=== PATIENT | female | born 1945 | race Caucasian/White ===

== ENCOUNTER 2024-03-01 10:31 | Emergency (ER) | payer MEDICARE, SELFPAY ==
[2024-03-01 10:31] VITALS: BP 173/72; PULSE 61; RESP 14; TEMP 37.1; O2SAT 97; BMI 28.3
[2024-03-01 10:47] LABS: Bacteria 0 SEEN /hpf (None Seen); Mucous, Urine 0 SEEN /hpf (<or=2+); Squamous Epithelial Cells - UA 0 SEEN /hpf (5-10)
[2024-03-01 10:52] LABS: Color, Urine Straw (Yellow); Glucose, Dipstick Normal (Normal); Ketone-Dipstick Negative (Negative); Leukocyte Esterase-Dipstick 100 /ul (Negative); Nitrite-Dipstick Negative (Negative); Occult Blood-Urine 250 /ul (Negative); Protein-Dipstick 100 mg/dl (Negative); Specific Gravity, Urine 1.015 (1.002-1.030); Urine Bilirubin Dipstick Negative (Negative); Urine Clarity Sl. Cloudy (Clear); Urine Urobilinogen Normal (Normal); Urine pH 6.5 (5.0 - 8.0)
--- NOTE | 2024-03-01 11:09 | EX.ED.DYSGE1 ---
HPI History of Present Illness Chief Complaint: Complaint Informant: patient Narrative Narrative: Patient is an 79-year-old female presenting from home for 1 day of urinary frequency, mild dysuria and suprapubic discomfort. She states she woke up with symptoms at 4 AM. She states that she has been using the restroom frequently and has some mild discomfort with it. She denies any dribbling or hesitancy. She has not feels like last time she had a urinary tract infection which was about 2 years ago. Denies any nausea, vomiting, fever, chills or back pain. No other complaints or concerns reported at this time. States she is normally very active. Comments that since it is [place] everything is close that she came to the ER. [facility] Medical History Hyperlipemia Hypertension Home Medications ?Medication ?Instructions ?Recorded ?Last Taken ?Type amlodipine 5 mg tablet 5 mg PO DAILY 03/01/24 Unknown History atenolol 100 mg tablet 100 mg PO DAILY 03/01/24 Unknown History cephalexin 500 mg capsule 500 mg PO Q12 #10 CAPSULES 03/01/24 Unknown Rx furosemide 40 mg tablet 40 mg PO DAILY 03/01/24 Unknown History lisinopril 40 mg tablet 40 mg PO DAILY 03/01/24 Unknown History phenazopyridine 200 mg tablet 200 mg PO TID PRN pain with 03/01/24 Unknown Rx (Pyridium) urination #6 tabs simvastatin 20 mg tablet 20 mg PO QHS 03/01/24 Unknown History Allergy/AdvReac Type Severity Reaction Status Date / Time No Known Allergies Allergy Verified 03/01/24 10:45 Family History no significant family his Social History household members: spouse Smoking Status: Never smoker ROS ROS ED Constitutional Constitutional ED: Denies chills or fever(s) Gastrointestinal Gastrointestinal: Reports abdominal pain; Denies nausea or vomiting Genitourinary Genitourinary ED: Reports dysuria and urinary frequency Musculoskeletal Musculoskeletal: Denies arthralgias, back pain or myalgias Neurologic Neurologic: Denies weakness EXAM Physical Exam Const Vital Signs: 03/01/24 10:31 Temperature 98.7 F Temperature Source Temporal Pulse Rate 61 Respiratory Rate 14 Blood Pressure 173/72 H Blood Pressure Mean 105 Pulse Ox 97 Oxygen Delivery Method Room Air Positive well nourished and well developed General Appearance ED: well developed and NAD HEENT Reports moist mucous membranes Chest Wall inspection of chest normal Resp normal respiratory effort and clear to auscultation bilaterally Cardio regular rate and regular rhythm GI normal to inspection, nondistended, normoactive bowel sounds and non-tender Back/Spine no CVA tenderness Lumbar Spine / Lower Back: Negative for lumbar spinal tenderness Neuro oriented x3 Sensorium / Orientation: alert Motor Exam: Negative for general weakness Psych mental status grossly normal Skin no rashes or lesions noted MDM MDM MDM Narrative Medical decision making narrative: Patient valuate for 1 day of urinary tract infection symptoms including dysuria, suprapubic discomfort and frequency. Patient is quite well-appearing. She is afebrile. Will send urinalysis and urine culture. Anticipated will be consistent with UTI based on her HPI and will start patient on Keflex and Pyridium. Patient given return precautions. Given first dose of medications the ER as it is a holiday. Since patient is quite well-appearing do not think patient requires lab work or advanced imaging at this time. Urinalysis shows 100 leukocyte esterase, 25-50 red blood cells and 10-25 white blood cells. No bacteria seen. Discussed with patient that her symptoms are consistent with UTI but is possible she could have a kidney stone or other pathology. Patient a does not feel that she has kidney stone (is not really acting like 1). Spasm this could be early hemorrhagic cystitis. She would like to defer further testing (CT of the abdomen pelvis) and treat with Pyridium and Keflex at this time. She is encouraged to return to the emergency room should she have a progression of her symptoms or not improved. Given return precautions. Discharged home in stable condition. Bladder scan shows approximately 50 cc of urine. Low suspicion for acute urinary retention causing her frequency. Lab Data Attestation: I reviewed the patient's lab results. Labs: Laboratory Results - last 24 hr 03/01/24 10:43 Urine Color Straw Urine Clarity Sl. Cloudy Urine pH 6.5 Ur Specific [place] 1.015 Urine Protein 100 H Urine Glucose (UA) Normal Urine Ketones Negative Urine Occult Blood 250 H Urine Nitrite Negative Urine Bilirubin Negative Urine Urobilinogen Normal Ur Leukocyte Esterase 100 H Urine RBC 25-50 SEEN Urine WBC 10-25 SEEN Ur Squamous Epith Cells 0 SEEN Urine Bacteria 0 SEEN Urine Mucus 0 SEEN Discharge Plan Triage Chief Complaint: Complaint ED Provider: Delfina Barrera Dx/Rx/DC Orders Clinical Impression: Hematuria, Frequency of urination, Acute UTI Instructions: ED Hematuria, ED Cystitis Female Adult Prescriptions: New cephalexin 500 mg capsule 500 mg PO Q12 Qty: 10 0RF phenazopyridine [Pyridium] 200 mg tablet 200 mg PO TID PRN (Reason: pain with urination) Qty: 6 0RF No Action furosemide 40 mg tablet 40 mg PO DAILY atenolol 100 mg tablet 100 mg PO DAILY amlodipine 5 mg tablet 5 mg PO DAILY simvastatin 20 mg tablet 20 mg PO QHS lisinopril 40 mg tablet 40 mg PO DAILY Primary Care Provider: Care Physician,No Primary Referrals: Fabi Go MD [Med Staff - Active Staff] - As Needed Care Physician,No Primary [Primary Care Provider] - Activity Restrictions/Additional Instructions: Your urine test today showed blood and white blood cells but no obvious bacteria. This could be an early urinary tract infection causing this. If you develop worsening pain or not improving please return to the emergency room for further evaluation. Please follow-up with a primary care doctor and you have also been given referral to urology if you continue to have blood in your urine or if you develop frequent urinary tract infections. Print Language: Malay Disposition Disposition: Home, Self Care
[2024-03-01 11:18] LABS: Red Blood Cells-Urine 25-50 SEEN /hpf (0-5); White Blood Cells 10-25 SEEN /hpf (0-5)
[2024-03-01] MEDS: Cephalexin 250 MG Capsule 500 MG PO (11:43)
[2024-03-01] MEDS: Phenazopyridine 95 MG Tablet PO (11:43)
== END 2024-03-01 11:54 | disposition home or self-care (01) ==
PROVIDERS: Emergency Provider Emergency Medicine; Visit Provider Emergency Medicine
DX: N39.0 Urinary tract infection, site not specified (principal); I10 Essential (primary) hypertension; R31.9 Hematuria, unspecified; R35.0 Frequency of micturition; E78.5 Hyperlipidemia, unspecified; Z79.899 Other long term (current) drug therapy
CPT/HCPCS: 81001; 87086; 87088; 87186; 99283

== ENCOUNTER → 2024-03-17 | Outpatient (CLI) | payer MEDICARE, SELFPAY ==
[2024-03-17 15:24] LABS: Absolute Neutrophil Count 4.1 X10^3/uL (2.0-7.7); Basophil# 0.05 X10^3/uL; Basophil% 0.7 % (0-1); Eosinophil# 0.18 X10^3/uL; Eosinophils% 2.4 % (0-5); Hematocrit 42.5 % (37-47); Hemoglobin 14.1 g/dL (12.0-15.0); Mean Corp Hgb Conc 33.2 g/dL (32-36); Mean Corpuscular Hgb 30.5 pg (27.0-32.0); Mean Corpuscular Volume 91.8 fL (81-99); Mean Platelet Vol. 11.2 fl (6.2-12.0); Monocyte# 0.74 X10^3/uL; Monocyte% 9.9 % (0-10); NRBC Flagged by Analyzer 0 % (0-5); Neutrophil # 4.12 X10^3/uL (2.7-7.7); Neutrophil % 54.9 % (47-70); Platelet Count 176 K/mm3 (150-450); RBC Distribution Width CV 12.7 % (11.6-14.6); RBC Distribution Width SD 42.7 fl (35.1-43.9); Red Blood Count 4.63 M/mm3 (4.2-5.4); White Blood Count 7.5 K/mm3 (4.4-11.0)
[2024-03-17 15:32] LABS: Vitamin D,25 Hydroxy 32.5 ng/mL
[2024-03-17 15:45] LABS: ALB/GLOB Ratio 1.1 RATIO (0.9-2.4); AST(SGOT) 18 U/L (15-37); Alanine Aminotransfer ALT/SGPT 21 U/L (13-56); Albumin, Serum 4.2 g/dL (3.2-5.0); Alkaline Phosphatase 58 U/L (45-117); Anion Gap 2 (5-15); BUN 13 mg/dL (7-18); BUN/Creat Ratio 15.8 RATIO (10-20); Calcium,Total 9.3 mg/dL (8.5-10.1); Chloride 104 mmol/L (98-107); Cholesterol 147 mg/dL (200); Creatinine, Serum 0.82 mg/dL (0.55-1.02); EST Glomerular Filtration Rate 71 mL/min (>60); Est Glom Filt Rate - Afr Amer 86 mL/min (>60); Globulin 3.8 g/dL (2.2-4.2); Glucose 99 mg/dL (74-106); High Density Lipoprotein 60 mg/dL; Potassium 3.5 mmol/L (3.5-5.1); Sodium Level 138 mmol/L (136-145); Triglycerides 110 mg/dL; Very Low Density Lipoprotein 22 mg/dL (5-40)
== END | disposition home or self-care (01) ==
LOC: MTLAB 13:12
PROVIDERS: PCP Family Medicine; Referring Provider Family Medicine; Visit Provider Family Medicine
DX: E78.5 Hyperlipidemia, unspecified (principal); I10 Essential (primary) hypertension; R53.83 Other fatigue

== ENCOUNTER 2024-06-11 07:56 | Emergency (ER) | payer MEDICARE, SELFPAY ==
[2024-06-11 07:56] VITALS: BP 179/82; PULSE 59; RESP 16; TEMP 36.6; O2SAT 96; BMI 28.8
--- NOTE | 2024-06-11 08:05 | EX.ED.DYSGE1 ---
HPI History of Present Illness Chief Complaint: Complaint Informant: patient Onset/Context/Timing Onset: Days (3) Context: Gradual Onset Timing: Continuous Quality: Burning Location: Suprapubic area Worsened by: Urination Relieved by: Cranberry juice Narrative Narrative: Patient presents with dysuria that has been getting worse over the past 3 days. Patient describes it as burning sensation. Patient states it is worse with urination. Patient states she has been drinking some cranberry juice which has been helping. Patient denies any fevers or chills. Patient denies any nausea or vomiting. Patient denies any neck or back pain. Patient denies any hematuria. [facility] Medical History Hyperlipemia Hypertension Home Medications ?Medication ?Instructions ?Recorded ?Last Taken ?Type amlodipine 5 mg tablet 5 mg PO DAILY 03/01/24 Unknown History atenolol 100 mg tablet 100 mg PO DAILY 03/01/24 Unknown History furosemide 40 mg tablet 40 mg PO DAILY 03/01/24 Unknown History lisinopril 40 mg tablet 40 mg PO DAILY 03/01/24 Unknown History phenazopyridine 200 mg tablet 200 mg PO TID PRN pain with 03/01/24 Unknown Rx (Pyridium) urination #6 tabs simvastatin 20 mg tablet 20 mg PO QHS 03/01/24 Unknown History cephalexin 500 mg capsule 500 mg PO Q12 #10 CAPSULES 06/11/24 Unknown Rx Allergy/AdvReac Type Severity Reaction Status Date / Time No Known Allergies Allergy Verified 03/01/24 10:45 Family History no significant family his Surgical History no surgical history no surgical history Social History household members: spouse Smoking Status: Never smoker ROS ROS ED Constitutional Constitutional ED: Denies chills or fever(s) Eyes Eyes: Denies blurry vision or change in vision ENT ENT ED: Denies rhinorrhea or sore throat Cardiovascular Cardiovascular: Denies chest pain or palpitations Respiratory/Chest Respiratory/Chest: Denies cough or dyspnea Gastrointestinal Gastrointestinal: Denies nausea or vomiting Genitourinary Genitourinary ED: Reports dysuria; Denies hematuria Musculoskeletal Musculoskeletal: Denies back pain or neck pain Integumentary Denies abscess or rash Neurologic Neurologic: Denies headache(s) or weakness Allergic/Immunologic Allergic/Immunologic ED: Denies mouth swelling or urticaria EXAM Physical Exam Const Vital Signs: 06/11/24 07:56 Temperature 97.9 F Temperature Source Temporal Pulse Rate 59 L Respiratory Rate 16 Blood Pressure 179/82 H Blood Pressure Mean 114 Pulse Ox 96 Oxygen Delivery Method Room Air Positive well nourished and well developed General Appearance ED: well developed and NAD HEENT Reports moist mucous membranes Neck supple and no JVD Resp normal respiratory effort and clear to auscultation bilaterally Cardio regular rate and regular rhythm GI non-distended Palpation: soft and tender suprapubic (Mild) Neuro oriented x3, CN's II-XII intact bilaterally and no sensory deficits noted Sensorium / Orientation: alert Motor Exam: strength 5/5 throughout Psych mental status grossly normal Skin no wounds MDM MDM MDM Narrative Medical decision making narrative: Differential diagnosis includes urinary tract infection, dysuria, and ureteral calculus. Urinalysis will be obtained to assess for urinary tract infection and hematuria. Lab Data Attestation: I reviewed the patient's lab results. Lab results narrative: Urinalysis was reviewed. Leukocyte esterase was 500 and occult blood was 250. There are 25-50 red blood cells and 25-50 white blood cells. There are no epithelial cells noted. There is no bacteria noted. Labs: Laboratory Results - last 24 hr 06/11/24 08:04 Urine Color Yellow Urine Clarity Sl Cldy Urine pH 7.0 Ur Specific [place] 1.010 Urine Protein 100 H Urine Glucose (UA) Normal Urine Ketones Negative Urine Occult Blood 250 H Urine Nitrite Negative Urine Bilirubin Negative Urine Urobilinogen Normal Ur Leukocyte Esterase 500 H Urine RBC 25-50 SEEN Urine WBC 25-50 SEEN Ur Squamous Epith Cells 0 SEEN Urine Bacteria 0 SEEN Urine Mucus 0 SEEN Additional Tests and Interventions Additional Tests or Interventions: Urine culture was ordered. Treatment and Re-Evaluation :: Patient was advised of the findings. Patient was given a dose of Keflex here. Patient was given a prescription for Keflex. Patient was instructed to drink plenty of fluids. Patient was instructed to follow-up with her primary care physician in 5 to 7 days. Patient was instructed to return if worse in any way. Patient understood and was agreeable with the plan. All questions were answered. Discharge Plan Triage Chief Complaint: Complaint ED Provider: Donte Maravilla Dx/Rx/DC Orders Clinical Impression: Cystitis, Hypertension Instructions: ED Cystitis Female Adult Prescriptions: Continued cephalexin 500 mg capsule 500 mg PO Q12 Qty: 10 0RF No Action furosemide 40 mg tablet 40 mg PO DAILY atenolol 100 mg tablet 100 mg PO DAILY amlodipine 5 mg tablet 5 mg PO DAILY simvastatin 20 mg tablet 20 mg PO QHS lisinopril 40 mg tablet 40 mg PO DAILY phenazopyridine [Pyridium] 200 mg tablet 200 mg PO TID PRN (Reason: pain with urination) Qty: 6 0RF Primary Care Provider: Narciso Lea Referrals: Narciso Lea MD [Primary Care Provider] - 5-7 Days Print Language: Yakut Disposition Disposition: Home, Self Care
[2024-06-11 08:20] LABS: Bacteria 0 SEEN /hpf (None Seen); Mucous, Urine 0 SEEN /hpf (<or=2+); Squamous Epithelial Cells - UA 0 SEEN /hpf (5-10)
[2024-06-11 08:54] LABS: Glucose, Dipstick Normal (Normal); Ketone-Dipstick Negative (Negative); Leukocyte Esterase-Dipstick 500 /ul (Negative); Nitrite-Dipstick Negative (Negative); Occult Blood-Urine 250 /ul (Negative); Protein-Dipstick 100 mg/dl (Negative); Urine Bilirubin Dipstick Negative (Negative); Urine Urobilinogen Normal (Normal)
[2024-06-11 08:57] LABS: Color, Urine Yellow (Yellow); Urine Clarity Sl Cldy (Clear)
[2024-06-11 09:20] LABS: Red Blood Cells-Urine 25-50 SEEN /hpf (0-5); White Blood Cells 25-50 SEEN /hpf (0-5)
[2024-06-11] MEDS: Cephalexin 500 MG Capsule PO (09:34)
[2024-06-11 09:48] VITALS: BP 179/82; PULSE 59; RESP 16; TEMP 36.6; O2SAT 96
== END 2024-06-11 09:48 | disposition home or self-care (01) ==
PROVIDERS: Emergency Provider Emergency Medicine; PCP Family Medicine; Visit Provider Emergency Medicine
DX: N30.90 Cystitis, unspecified without hematuria (principal); I10 Essential (primary) hypertension; E78.5 Hyperlipidemia, unspecified
CPT/HCPCS: 81001; 87086; 87088; 99282